=== PATIENT | female | born 1975 | race Caucasian/White ===

== ENCOUNTER 2016-09-06 19:56 | Emergency (ER) | payer SELFPAY ==
[~2016-09-06] VITALS: Ht 177.8 cm; Wt 86.2 kg
[~2016-09-06 19:56] MED LIST: AMOXICILLIN500 MG PO; ATARAX25 MG PO; BENADRYL25 MG PO; CLINDAMYCIN HC300 MG PO; DIFLUCAN150 MG PO; MEDROL DOSEPAK4 MG PO; MOTRIN800 MG PO; NAPROSYN500 MG PO; NORCO 325 MG-51 TAB PO; PEN-V500 MG PO; PENICILLIN VK500 MG PO; PERIDEX 480 ML480 ML PO; PREDNICOT20 MG PO; ULTRAM50 MG PO; VICODIN ES 7501 TAB PO
[2016-09-06] MEDS ORDERED: AMOXICILLIN500 M2 PO (20:52)
== END 2016-09-06 21:03 | disposition home or self-care (01) ==
LOC: ED 19:56
DX: K08.89 Other specified disorders of teeth and supporting structures (principal)

== ENCOUNTER 2017-05-24 10:37 | Emergency (ER) | payer OTHER ==
[~2017-05-24] VITALS: Ht 177.8 cm; Wt 90.7 kg
[~2017-05-24 10:37] MED LIST changes: +AMOXICILLIN500 M2 PO
== END 2017-05-24 12:52 | disposition home or self-care (01) ==
LOC: ED 10:37
DX: K04.7 Periapical abscess without sinus (principal); Z98.51 Tubal ligation status